=== PATIENT | female | born 1985 | race Caucasian/White ===

== ENCOUNTER → 2022-07-06 10:04 | Outpatient (CLI) | payer BC, SELFPAY ==
--- NOTE | ~2022-07-06 | XR_ITS ---
EXAMINATION: XR lumbar spine 2-3V DATE: 07/06/2022 10:27 INDICATION: Low back injury. Fall from horse. TECHNIQUE: 3 views of lumbar spine were obtained. COMPARISON: Lumbar spine radiographs 10/25/2017 FINDINGS: There is 6 degrees levocurvature of lumbar spine. Vertebral body heights are normal. There is moderately decreased disc height at L4-L5 and L5-S1. There is multilevel mild facet joint osteoart hritis. IMPRESSION: 1. Moderate lower lumbar spondylosis. Reviewed, dictated and finalized at location A. [facility] [employer]
--- NOTE | ~2022-07-06 | XR_ITS ---
EXAMINATION: XR hip LT min 2V DATE: 07/06/2022 10:27 INDICATION: Left hip injury. TECHNIQUE: 3 views of left hip were obtained. COMPARISON: None. FINDINGS: Bone alignment is normal. No fracture. Left hip joint space is normal. IMPRESSION: 1. Normal left hip. Reviewed, dictated and finalized at location A. ANALYST IMPRESSION: 1. Normal left hip.
== END ==
PROVIDERS: PCP Clinical Nurse Specialist; Visit Provider Clinical Nurse Specialist
DX: M25.552 Pain in left hip (principal); M47.896 Other spondylosis, lumbar region
CPT/HCPCS: 72100; 73502

== ENCOUNTER → 2023-04-09 15:20 | Outpatient (CLI) | payer BC, SELFPAY ==
--- NOTE | ~2023-04-09 | XR_ITS ---
[id number] INDICATION: Neck pain TECHNIQUE: 4 views of the cervical spine. FINDINGS: No prior studies for comparison. The cervical spine is visualized to the cervicothoracic junction. There is no prevertebral soft tiss ue swelling, listhesis, or loss of vertebral body height. Intervertebral disc spaces are normal. Th e osseous central canal is patent. No displaced cervical spine fractures are identified. IMPRESSION: 1. No acute osseous abnormality of the cervical spine. Reviewed, dictated and finalized at location L.
== END ==
PROVIDERS: PCP Clinical Nurse Specialist; Visit Provider Clinical Nurse Specialist
DX: M54.2 Cervicalgia (principal)
CPT/HCPCS: 72040

== ENCOUNTER → 2023-04-29 15:35 | Outpatient (CLI) | payer BC, SELFPAY ==
--- NOTE | ~2023-04-29 | MR_ITS ---
MRI of the cervical spine Clinical History: Cervicalgia Technique: Axial T2-weighted and gradient images, and sagittal T1-weighted, T2-weighted, and STIR mechelle ges were acquired. Findings: There is no fracture or subluxation of the cervical spine. Vertebral bodies maintain normal height and alignment. No bone marrow signal abnormality seen. At C2-C3, there is no disc bulge or herniation. No spinal canal stenosis, cord compression, or neural foraminal narrowing. At C3-C4, there is no disc bulge or herniation. No spinal canal stenosis, cord compression, or neural foraminal narrowing. At C4-C5, there is no significant disc bulge or herniation. No spinal canal stenosis, cord compressio n, or neural foraminal narrowing. At C5-C6, there is minimal disc bulge. No spinal canal stenosis, cord compression, or neural foramina l narrowing. At C6-C7, there is no disc bulge or herniation. No spinal canal stenosis, cord compression, or neural foraminal narrowing. No abnormal signal seen in the spinal cord. Paravertebral soft tissues are unremarkable. Impression: Minimal disc bulge at C5-C6, otherwise unremarkable exam. Reviewed, dictated and finalized at [facility]. Impression: Minimal disc bulge at C5-C6, otherwise unremarkable exam.
== END ==
PROVIDERS: Visit Provider Clinical Nurse Specialist
DX: M50.322 Other cervical disc degeneration at C5-C6 level (principal)
CPT/HCPCS: 72141